=== PATIENT | male | born 1955 | race Two or more races ===

== ENCOUNTER → 2017-07-12 | Outpatient (CLI) | payer OTHER | END | disposition home or self-care (01) | LOC: EMPHLTH 10:57 | PROVIDERS: ATTEND Internal Medicine | DX: Z02.1 Encounter for pre-employment examination (principal) | CPT/HCPCS: 86706; 86735; 86762; 86765; 86787 ==

== ENCOUNTER 2023-06-07 08:11 | Emergency (ER) | payer OTHER ==
[~2023-06-07] VITALS: Ht 172.7 cm; Wt 96.4 kg
[2023-06-07 08:21] VITALS: BP 178/77; PULSE 51; RESP 16; TEMP 98
[2023-06-07] MEDS ORDERED: ATEN100T92 PO (08:21)
[2023-06-07] MEDS ORDERED: LISI-893 PO (08:21)
[2023-06-07] MEDS ORDERED: HYDR25TA2 PO (08:21)
[2023-06-07] MEDS ORDERED: ALLO-97 PO (08:21)
[2023-06-07] MEDS ORDERED: FENO160T75 PO (08:21)
[2023-06-07] MEDS ORDERED: ASPI-1450 PO (08:21)
[2023-06-07] MEDS ORDERED: METF-1211 PO (08:21)
[2023-06-07] MEDS ORDERED: COLCHICINE 0.6 MG TABLET PO ONE (09:00)
[2023-06-07] MEDS ORDERED: KETOROLAC TROMETHAMINE 60 MG/2 ML VIAL IM ONE (09:00)
[2023-06-07] MEDS ORDERED: ACETAMINOPHEN 500 MG TABLET PO ONE (09:00)
[2023-06-07 10:05] LABS: BASOPHILS % (AUTO) 0.8 % (0.0-2.0); EOSINOPHILS % (AUTO) 1.6 % (1.0-6.0); HEMOGLOBIN 13.4 g/dL (13.5-17.5); LYMPHOCYTES # (AUTO) 1.9 K/uL (1.0-4.8); LYMPHOCYTES % (AUTO) 30.1 % (22.0-44.0); MEAN CORPUSCULAR HEMOGLOBIN 30.1 pg (26.0-34.0); MEAN CORPUSCULAR HGB CONC 33.5 G/dL (31.0-37.0); MEAN CORPUSCULAR VOLUME 90 fL (80-100); MONOCYTES # (AUTO) 0.4 K/uL (0.1-1.0); NEUTROPHILS % (AUTO) 61.5 % (40.0-70.0); PLATELET COUNT (AUTO) 184 K/uL (150-450); RED BLOOD CELL COUNT(AUTO) 4.44 MIL/uL (4.50-5.90); RED CELL DISTRIBUTION WIDTH 13.8 % (11.5-14.5); WHITE BLOOD COUNT (AUTO) 6.4 K/uL (4.5-11.0)
[2023-06-07 10:07] LABS: CALCIUM, TOTAL 8.1 mg/dL (8.8-10.5); CREATININE 1.99 mg/dL (0.60-1.30); POTASSIUM 3.9 mmol/L (3.5-5.1)
[2023-06-07 10:10] LABS: URIC ACID 8.6 mg/dL (2.6-7.2)
[2023-06-07] MEDS ORDERED: COLC0.6T73 PO (10:25)
[2023-06-07] MEDS ORDERED: HYDR-4723 PO (10:25)
== END 2023-06-07 10:43 | disposition home or self-care (01) ==
LOC: EMS 08:19
DX: E11.65 Type 2 diabetes mellitus with hyperglycemia (principal); M10.9 Gout, unspecified; N28.9 Disorder of kidney and ureter, unspecified; I10 Essential (primary) hypertension
CPT/HCPCS: 99284; 80048; 82962; 84550; 85025; 36415; 73503; 96372; J1885